=== PATIENT | male | born 1980 | race Caucasian/White ===

== ENCOUNTER → 2017-12-09 | Outpatient (REF) | payer OTHER ==
[2017-12-09 20:03] LABS: AMORPHOUS SEDIMENT SMALL (NEGATIVE); APPEARANCE, URINE CLOUDY (CLEAR); BACTERIA, URINE AUTO NEGATIVE (NEGATIVE); BILIRUBIN, URINE AUTO NEGATIVE (NEGATIVE); BLOOD, URINE BLOOD NEGATIVE (NEGATIVE); COLOR, URINE YELLOW (YELLOW); GLUCOSE, URINE (UA) AUTO NEGATIVE (NEGATIVE); KETONE, URINE AUTO NEGATIVE (NEGATIVE); LEUKOCYTE ESTERASE, URINE AUTO NEGATIVE (NEGATIVE); MUCUS, URINE SMALL (NEGATIVE); NITRITE, URINE AUTO NEGATIVE (NEGATIVE); PROTEIN, URINE AUTO NEGATIVE (NEGATIVE); RBC, URINE AUTO 0 /HPF (0-3); SPECIFIC GRAVITY URINE AUTO 1.019 (1.002-1.035); SQUAMOUS EPITHELIAL CELL UR AU 0 /HPF (0-6); UROBILINOGEN, URINE AUTO 0.2 mg/dL (0.0-2.0); WBC, URINE AUTO 1 /HPF (0-3)
== END ==
LOC: M SMT 17:16
DX: N50.819 Testicular pain, unspecified (principal)

== ENCOUNTER → 2018-08-01 | Outpatient (CLI) | payer OTHER ==
[2018-08-01 20:12] LABS: BASO # 0.1 10^3/uL (0.0-0.2); BASO % 0.4 % (0.0-1.0); EOS # 0.1 10^3/uL (0.0-0.50); EOS % 0.9 % (0.0-3.0); HEMATOCRIT 42.1 % (42.0-52.0); HEMOGLOBIN 13.9 g/dl (13.5-17.5); IMMATURE GRANULOCYTE % 0.2 % (0-3.0); LYMPH # 4.1 10^3/uL (1.5-4.5); LYMPH % 35.9 % (24.0-44.0); MEAN CORPUSCULAR HEMOGLOBIN 27.7 pg (27.0-33.0); MEAN CORPUSCULAR VOLUME 83.9 fl (80.0-96.0); MONO # 1.1 10^3/uL (0.0-0.8); MONO % 9.9 % (0.0-5.0); NEUTROPHILS % 52.7 % (36.0-66.0); PLATELET COUNT, AUTOMATED 230 10^3/uL (150-450); RED BLOOD COUNT 5.02 10^6/uL (4.30-6.10); RED CELL DISTRIBUTION WIDTH 12.7 % (11.5-14.5); WHITE BLOOD COUNT 11.4 10^3/uL (4.0-10.0)
[2018-08-01 20:25] LABS: ALBUMIN 4.3 GM/DL (3.2-5.2); ALBUMIN/GLOBULIN RATIO 1.34 (1.00-1.93); ALKALINE PHOSPHATASE 80 U/L (45-117); ALT/SGPT 39 U/L (12-78); ANION GAP 7 MEQ/L (8-16); AST/SGOT 12 U/L (7-37); BILIRUBIN,TOTAL 0.3 MG/DL (0.2-1.0); BLOOD UREA NITROGEN 12 MG/DL (7-18); CALCIUM LEVEL 9.3 MG/DL (8.5-10.1); CARBON DIOXIDE LEVEL 28 MEQ/L (21-32); CHLORIDE LEVEL 106 MEQ/L (98-107); CREATININE FOR GFR 0.91 MG/DL (0.70-1.30); GLOMERULAR FILTRATION RATE > 60.0 (>60); GLUCOSE, FASTING 103 MG/DL (70-100); POTASSIUM SERUM 4.6 MEQ/L (3.5-5.1); SODIUM LEVEL 141 MEQ/L (136-145); TOTAL PROTEIN 7.5 GM/DL (6.4-8.2)
== END ==
LOC: M WUC 17:38
DX: R10.30 Lower abdominal pain, unspecified (principal)
CPT/HCPCS: 80053

== ENCOUNTER 2021-10-05 11:31 | Emergency (ER) | payer BC, OTHER ==
[~2021-10-05] VITALS: Ht 175.3 cm; Wt 95.5 kg
[2021-10-05 11:32] VITALS: BP 147/84
[2021-10-05] MEDS ORDERED: OMEP10CASR PO (11:37)
[2021-10-05] MEDS ORDERED: SYMB16INH (11:37)
[2021-10-05] MEDS ORDERED: ONDANSETRON 4MG/2ML VIAL IV ONE (12:15)
[2021-10-05] MEDS ORDERED: MORPHINE 4 MG/ML 1ML VIAL/SYRINGE (J2270) IV ONE ×2 (12:15→13:25)
[2021-10-05] MEDS ORDERED: ONDA4TAB6 PO (13:20)
[2021-10-05] MEDS ORDERED: PERC5TAB12 PO (13:20)
[2021-10-07] MEDS ORDERED: IBUP-359 PO (08:25)
[2021-10-07] MEDS ORDERED: VITMTA PO (08:27)
== END 2021-10-05 13:51 | disposition home or self-care (01) ==
LOC: M ED 11:31
DX: S52.531A Colles' fracture of right radius, initial encounter for closed fracture (principal); S52.611A Displaced fracture of right ulna styloid process, initial encounter for closed fracture; W01.0XXA Fall on same level from slipping, tripping and stumbling without subsequent striking against object, initial encounter; Y92.018 Other place in single-family (private) house as the place of occurrence of the external cause; J45.909 Unspecified asthma, uncomplicated; K21.9 Gastro-esophageal reflux disease without esophagitis; Z79.899 Other long term (current) drug therapy
CPT/HCPCS: 29125; 73080; 73110; 73200; 96374; 96375; 96376; 99284; J2270; J2405

== ENCOUNTER 2021-10-08 10:02 | Day surgery (SDC) | payer BC ==
[~2021-10-08] VITALS: Ht 175.3 cm; Wt 97.9 kg
[~2021-10-08 10:02] MED LIST: IBUP-359 PO; MIDAZOLAM INJ 2MG/2ML VIAL (J2250 PER 1MG) IV PRN; OMEP10CASR PO; ONDA4TAB6 PO; PERC5TAB12 PO; SYMB16INH; VITMTA PO; ceFAZolin SOD 2 GM in IV 1 EA IV ONE; fentaNYL 100 MCG/2 ML INJECTION (J3010) IV PRN
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
--- OUTSIDE RECORDS SUMMARY | 2021-10-08 10:10 | CCD | Continuity of Care Document ---
Author Author Vladimir NAPOLES MD Organization Unknown Address [address] [place] [address] , [facility] [address] [place] [address] Phone [phone] Problems Description No Information Available Social History Type Date Description Comments Sex Unknown ETOH Use Rarely Tobacco Use Start: Unknown Denies Smoking Recreational Drug Use Denies Drug Use Allergies and adverse reactions Description No Known Drug Allergies Medications Active Medications SIG Qnty Indications Ordering Provide r Date Oxycodone-Acetaminophen 5-325mg Tablets Miller Minor, F.N.P. Symbicort 160-4.5mcg/Act Aerosol Dariel Siddiqi R.P.A.-C. Ondansetron 4mg Tablets Dispers Miller Minor F.N.P. Immunizations Description No Information Available Vital Signs Date Vital Result Comment 10/06/2021 1:40pm Body Temperature 97.0 F Results Description No Information Available Procedures Date Code Description Status 10/06/2021 09110 Office/Outpatient New Moderate M DM 45-59 Minutes Completed Medical Devices Description No Information Available Encounters Type Date Location Provider Dx Diagnosis Office Visit 10/06/2021 2:00p [facility] Dany Napoles MD S52.501A Unsp fracture of the lower end of right radius, init Assessments Date Code Description Provider 10/06/2021 S52.501A Unspecified fracture of the lower end of right radius, initial encounter for closed fracture Dany Napoles MD Plan of Treatment No Information Available Functional Status Description No Information Available Mental Status Description No Information Available Referrals Description No Information Available
[2021-10-08] MEDS ORDERED: BUPIVACAINE/EPIN 0.25% 30 ML VIAL As Ordered ONE (11:41)
[2021-10-08] MEDS ORDERED: dexameTHASONE 4 MG/ML 1ML VIAL (J1100 PER 1MG) As Ordered ONE (12:02)
[2021-10-08] MEDS ORDERED: propofoL 200 MG/20 ML VIAL As Ordered ONE (12:02)
[2021-10-08] MEDS ORDERED: KETOROLAC 60MG 2ML VIAL As Ordered ONE (12:02)
[2021-10-08] MEDS ORDERED: LIDOCAINE 2% 100MG/5ML SDV (FOR ANES.) As Ordered ONE (12:02)
[2021-10-08] MEDS ORDERED: METOCLOPRAMIDE INJ 10MG/2ML VIAL (J2765 PER 1) As Ordered ONE (12:02)
[2021-10-08] MEDS ORDERED: ONDANSETRON 4MG/2ML VIAL As Ordered ONE (12:02)
[2021-10-08] MEDS ORDERED: MIDAZOLAM INJ 2MG/2ML VIAL (J2250 PER 1MG) As Ordered ONE (12:02)
[2021-10-08] MEDS ORDERED: fentaNYL 100 MCG/2 ML INJECTION (J3010) As Ordered ONE (12:02)
[2021-10-08] MEDS ORDERED: ACETAMINOPHEN 1000MG 100ML IV BTL (OFIRMEV) (J0131 PER 10MG) As Ordered ONE (12:02)
[2021-10-08] MEDS ORDERED: HYDROmorphone HCL 2 MG/ML 1ML VIAL As Ordered ONE (12:28)
--- NOTE | 2021-10-08 14:04 | REP ---
INDICATION: RIGHT WRIST FRACTURE. COMPARISON: 10/05/2021. TECHNIQUE: Multiple C-arm views right wrist. FINDINGS: Comminuted fracture of the distal radius is again noted, with placement of a plate and multiple screws in the distal radius. There is improved alignment when compared to the prior study. IMPRESSION: 120 seconds of fluoroscopy time was utilized. <Electronically signed by Yoshi Pedroza > 10/08/21 1400
[2021-10-08] MEDS ORDERED: LR 1,000 ML IV SCH ×2 (14:20→14:25)
[2021-10-08] MEDS ORDERED: ONDANSETRON 4MG/2ML VIAL IV PRN ×2 (14:20→14:25)
[2021-10-08] MEDS: oxyCODONE 5MG TAB PO PRN ×2 (14:22→15:08)
--- NOTE | 2021-10-08 14:24 | ROOPDOC ---
[facility] Report Of Operation Report of Operation DATE OF PROCEDURE: 10/08/21 PREPROCEDURE DIAGNOSES: Right distal radius fracture. POSTPROCEDURE DIAGNOSES: Same. PROCEDURE PERFORMED: Right wrist open reduction internal fixation. SURGEON: Dr. Patricia Napoles MD PROCESS DESIGN ENGINEER: ANESTHESIA: General anesthesia Dr yee. ESTIMATED BLOOD LOSS: Approximately 25 mL. COMPLICATIONS: None. REMARKS: None. FINDINGS: Distal radius fracture SPECIMENS REMOVED: None PROCEDURE NOTE: This 41-year-old man had a fall on an outstretched wrist. He sustained a comminuted intra-articular distal radius fracture. I saw him in preoperative holding. Discussed the pros and cons risks and benefits of proceeding with surgery. He wished to proceed a marked the right upper extremity he understood had no further questions.. DESCRIPTION OF PROCEDURE: Patient was brought to the operating room theater. He was placed supine on the operating room table. All bony prominences appropriately padded. Arm positioning to the patient's right side. 18 inch tourniquet appropriately padded and applied to the right upper extremity. Bed turned 90 degrees. General anesthesia induced. 2 g IV Ancef is administered prior to the start of the case. Right upper extremity prepped and draped in the usual sterile fashion with chlorhexidine-based prep solution allowing over 3 minutes drying time prior to draping. Preoperative timeout performed to confirm the site patient and surgery. I began by exsanguinating the limb with Esmarch I elevated the limb and inflated the tourniquet to 250 mmHg. I made a standard volar incision over the FCR tendon carried the dissection down through skin and subcutaneous tissue achieve meticulous hemostasis. I retracted the FCR radially. I incised the subsheath. I cauterized any crossing vessels. I protected the radial artery. I retracted the FPL ulnarly. I made a L-shaped incision in the pronator quadratus. Some of the fracture had already protruded through the surface. Identified the fracture site cleared away any interposed hematoma and periosteum. Identified a longitudinal split. I used longitudinal traction as well as a freer elevator on the contralateral side to achieve an appropriate reduction. I took intraoperati ve AP and lateral as well as true lateral joint view x-rays to confirm appropriate reduction. I selected a [employer]s precontoured volar locking plate. This had one oblong hole proximally and 2 other holes. Placed this on the bone. I used 1 small fully th readed locking screw in the proximal end of the plate in order to elevate that for further reduction. I then identified the longitudinal split anatomically reduced this this is quite difficult to see by direct visualization but with appropriate reduction at the transverse fracture site area the seem to reduce nicely. I placed the plate appropriately on both AP and lateral radiographs. I used 1 fully threaded cortical screw 2.7 mm in the oblong hole in order to be able to slightly adjust the plate. I used cortical and locking screws distally in these measured 20 mm long. As one initial cortical screw to achieve compression of the plate to the distal fragments. This was on the radial side. Joint surface appeared appropriately reduced. I then removed the small fully threaded locking screw in the proximal end of the plate fully tightened down the cortical screw that was in the oblong hole. I then placed 2 fully threaded cortical locking screws in the proximal end of the plate and then shortened the cortical screw that was in the oblong hole to a 16 mm long screw. Final radiographs were taken and saved onto the system. Reduction appeared adequate and plate normally placed. Tourniquet was let down bleeding hemostased hand warm and well perfused and pink . This wound thoroughly irrigated with normal saline. Subcutaneous tissue closed with 2-0 Vicryl and skin with 3-0 Monocryl. Skin cleaned with wet and dry dressing. Local anesthetic around the incision site. Steri-Strips applied followed by Adaptic 4 by gauze and sterile cast padding with a volar plaster Loida splint overwrapped with 4 inch Alberto bandage. Splint was allowed to fully harden with the wrist in neutral. Patient woken up from general anesthetic transferred off the operating room table and taken to postanesthetic care unit in stable condition. All sponge needle instrument counts were correct no complications. Plan to the patient finger thumb and elbow exercises range of motion as tolerated but no lifting with the upper extremity follow-up in the office in 2 weeks time to keep the dressing on and clean and dry until then. Prescription has been sent into [email or web address]. Risk factors for harms from taking opioid medications discussed and assessed including but not limited to personal or family history of substance use disorder, anxiety or depression, , age 65 or older, COPD or other underlying respiratory conditions, and renal or hepatic insufficiency. Discussed with patient concerns and determined any harms they may experience or be currently experiencing such as nausea or constipation, feeling sedated or confused, breathing interruptions during sleep, or taking or craving more opioids than prescribed or difficulty controlling use (addiction). Discussed early warning signs of overdose including confusion, sedation, slurred speech, abnormal gait. PATRICIA NAPOLES MD Oct 08, 2021 14:24
[2021-10-08] MEDS ORDERED: ACETAMINOPHEN TAB 650MG DOSE (2X325MG) PO PRN (14:25)
[2021-10-08] MEDS ORDERED: MORPHINE 2 MG/ML 1ML VIAL (J2270) IV PRN (14:25)
[2021-10-08] MEDS ORDERED: PERCOCET 5MG/325MG TAB PO PRN (14:25)
[2021-10-08] MEDS: fentaNYL 100 MCG/2 ML INJECTION (J3010) IV PRN ×4 (14:31→14:47)
[2021-10-08] MEDS ORDERED: ROPIvacaine 0.5% 30ML INJECTION (J2795 PER 1MG) XX ONE (15:20)
[2021-10-08] MEDS ORDERED: EPINEPHrine INJ 1 MG/ML 1ML AMP XX ONE (15:20)
[2021-10-08] MEDS ORDERED: dexameTHASONE 10MG/1ML VIAL PRES.FREE (J1100 PER 1MG) XX ONE (15:20)
[2021-10-08 17:30] VITALS: BP 122/66
== END 2021-10-08 17:35 | disposition home or self-care (01) ==
LOC: M SDC 10:02
PROVIDERS: ATTEND Orthopaedic Surgery Sports Medicine
DX: S52.501A Unspecified fracture of the lower end of right radius, initial encounter for closed fracture (principal); W00.0XXA Fall on same level due to ice and snow, initial encounter; Y92.89 Other specified places as the place of occurrence of the external cause; Y93.9 Activity, unspecified; Y99.9 Unspecified external cause status; K21.9 Gastro-esophageal reflux disease without esophagitis; F41.9 Anxiety disorder, unspecified; J45.909 Unspecified asthma, uncomplicated; Z79.899 Other long term (current) drug therapy
CPT/HCPCS: 25607; 76000; C1713; J0131; J0171; J0690; J1100; J1170; J1885; J2250; J2405; J2765; J2795; J3010; U0002

== ENCOUNTER → 2021-10-20 | Outpatient (CLI) | payer BC ==
[~2021-10-20] MED LIST changes: -MIDAZOLAM INJ 2MG/2ML VIAL (J2250 PER 1MG) IV PRN; -ceFAZolin SOD 2 GM in IV 1 EA IV ONE; -fentaNYL 100 MCG/2 ML INJECTION (J3010) IV PRN
== END ==
LOC: M SOG 14:24
PROVIDERS: ATTEND Orthopaedic Surgery Sports Medicine
DX: Z47.89 Encounter for other orthopedic aftercare (principal); S59.201D Unspecified physeal fracture of lower end of radius, right arm, subsequent encounter for fracture with routine healing; X58.XXXD Exposure to other specified factors, subsequent encounter; Y92.9 Unspecified place or not applicable; Y93.9 Activity, unspecified; Y99.9 Unspecified external cause status

== ENCOUNTER → 2024-02-01 | Outpatient (CLI) | payer BC | LOC: M WUC 14:12 | PROVIDERS: ATTEND Physician Assistant | DX: M54.16 Radiculopathy, lumbar region (principal) ==

== ENCOUNTER → 2024-02-02 | Outpatient (REF) | payer BC ==
[2024-02-02 11:29] LABS: HEMATOCRIT 43.7 % (42.0-52.0); HEMOGLOBIN 14.9 g/dl (13.5-17.5); MEAN CORPUSCULAR HEMOGLOBIN 28.9 pg (27.0-33.0); MEAN CORPUSCULAR HGB CONC 34.1 g/dl (32.0-36.5); MEAN CORPUSCULAR VOLUME 84.7 fl (80.0-96.0); PLATELET COUNT, AUTOMATED 216 10^3/uL (150-450); RED BLOOD COUNT 5.16 10^6/uL (4.30-6.10); WHITE BLOOD COUNT 11.6 10^3/uL (4.0-10.0)
[2024-02-02 12:01] LABS: TOTAL IRON BINDING CAPACITY 307 UG/DL (250-425)
[2024-02-02 12:02] LABS: ALBUMIN 4.2 G/DL (3.2-5.2); ALKALINE PHOSPHATASE 72 U/L (46-116); ALT/SGPT 29 U/L (7.0-40); AST/SGOT 12 U/L (<34); BILIRUBIN,TOTAL 0.5 MG/DL (0.3-1.2); BLOOD UREA NITROGEN 19 MG/DL (9-23); CALCIUM LEVEL 9.3 MG/DL (8.5-10.1); CARBON DIOXIDE LEVEL 26 MMOL/L (20-31); CHLORIDE LEVEL 105 MMOL/L (98-107); CHOLESTEROL LEVEL 224 MG/DL (<200); CHOLESTEROL RISK RATIO 4.43 (<5); CREATININE FOR GFR 0.91 MG/DL (0.70-1.30); GLOMERULAR FILTRATION RATE > 60.0 (>60); GLUCOSE, FASTING 114 MG/DL (60-100); HDL CHOLESTEROL 50.5 MG/DL (>40); IRON (FE) 77 UG/DL (65-175); LDL CHOLESTEROL 158.9 MG/DL (<100); NON-HDL-C 173.5 MG/DL; PERCENT SATURATION 25.1 % (19.7-50.0); POTASSIUM SERUM 4.3 MMOL/L (3.5-5.1); SODIUM LEVEL 138 MMOL/L (136-145); TOTAL PROTEIN 7.3 G/DL (5.7-8.2); TRIGLYCERIDES LEVEL 73 MG/DL (<150)
[2024-02-02 12:04] LABS: FOLATE > 24.0 NG/ML (>5.4); VITAMIN B12 LEVEL 476 PG/ML (211-911)
== END ==
LOC: M LABWUC 10:14
PROVIDERS: ATTEND Physician Assistant
DX: E66.9 Obesity, unspecified (principal); G47.00 Insomnia, unspecified; E61.1 Iron deficiency; R20.2 Paresthesia of skin